=== PATIENT | female | born 1975 | race Caucasian/White ===

== ENCOUNTER → 2018-12-21 11:36 | Outpatient (CLI) | payer SELFPAY | PROVIDERS: Family Provider Family Medicine; PCP Family Medicine; Visit Provider Physician Assistant | DX: R30.0 Dysuria (principal) | CPT/HCPCS: 87077; 87086; 87147; 87186 ==

== ENCOUNTER 2020-10-30 17:58 | Emergency (ER) | payer OTHER, MEDICAID, SELFPAY ==
[2020-10-30] VITALS (13 sets, daily range): BP systolic 148–186; BP diastolic 82–107; PULSE 67–84; RESP 11–25; TEMP 37.1; O2SAT 98–100; BMI 39.5
--- NOTE | 2020-10-30 18:09 | DI.RAD.S_ITS ---
PROCEDURE: XR CHEST 1V INDICATIONS: chest pain TECHNIQUE: One view of the chest was acquired. COMPARISON: None. FINDINGS: Surgical changes and devices: None. Lungs and pleura: Lungs are clear. No pleural effusions or pneumothorax. Mediastinum: Mediastinal contours appear normal. Heart size is mildly prominent. Bones and chest wall: No suspicious bony lesions. Overlying soft tissues appear unremarkable. IMPRESSION: No acute pulmonary process. Dictated by: Bekah Mak M.D. on 10/30/2020 at 18:45 Approved by: Bekah Mak M.D. on 10/30/2020 at 18:45
[2020-10-30 18:40] LABS: Add Manual Diff / Slide Review NO; Basophils Absolute Auto 100 /uL (0-100); Basophils Percent Auto 1.2 % (0-2); Eosinophils Absolute Auto 200 /uL (0-450); Eosinophils Percent Auto 2.1 % (2-4); Hematocrit 40.2 % (36-46); Hemoglobin 13.3 g/dL (12.0-16.0); Lymphocytes Absolute Auto 3200 /uL (1100-4500); Lymphocytes Percent Auto 31.1 % (25-40); Mean Corpuscular HGB Conc 33.1 % (30-36); Mean Corpuscular Hemoglobin 27.3 PG (26-34); Mean Corpuscular Volume 82.3 fL (80-100); Monocytes Absolute Auto 600 /uL (0-900); Monocytes Percent Auto 5.7 % (3-14); Neutrophils Absolute Auto 6100 /uL (1500-7000); Neutrophils Percent Auto 59.9 % (50-75); Platelet Count 333 X10^3/uL (150-400); Red Blood Cell Count 4.89 X10^6/uL (4.0-5.2); Red Cell Distribution Width 15.6 % (11.6-14.8); White Blood Cell Count 10.1 X10^3/uL (4.5-11.0)
[2020-10-30 18:48] LABS: Prothrombin Time 11.7 SECONDS (10.1-12.7)
[2020-10-30 18:51] LABS: PTT Partial Thromboplastin Tim 36 SECONDS (26.4-36.2)
--- NOTE | 2020-10-30 18:52 | ED_ITS ---
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 Earlier in the day her blood pressure had been 130/80 she then was feeling clammy some mild palpitations and blood pressure was rechecked and was found to be 178/100. She states that she just feels weird but does not have any other specific findings. She is not complaining of dyspnea, orthopnea, chest pain, nausea, vomiting, diarrhea, abdominal pain, headaches, acute neurologic changes, lower extremity edema. She does note that about a month ago she had a 2 that fell out while she was brushing her teeth bleeding of hold seems to be healing it was not painful and continues to not be painful. Of note, she did have her 1st COVID shot today. Related Data Home Medications Medication Instructions Recorded Confirmed cranberry fruit concentrate 250 mg 250 mg PO DAILY PRN tab 09/22/19 09/22/19 chewable tablet ibuprofen 200 mg capsule 600 mg PO Q8H PRN cap 09/22/19 09/22/19 Allergies Allergy/AdvReac Type Severity Reaction Status Date / Time No Known Drug Allergies Allergy Verified 10/30/20 18:09 Review of Systems Review of Systems ROS Unobtainable: All systems reviewed & are unremarkable except as noted in HPI and below Patient History Medical History Elevated blood pressure reading Obesity Surgical History History of third molar tooth extraction Status post tubal ligation Status post tubal ligation Family History Brother Age: 43 Hypertension Father Cancer Heart disease Hypertension Stroke Hepatitis C Mother Hepatitis C Grandfather Hypertension Parkinson disease Sister Age: 30 Heart disease Hypertension Social History Smoking Status: Current every day smoker Smoking Status: Current every day smoker tobacco type: cigarettes alcohol intake frequency: 0-2 drinks per day Substance Use Type: marijuana Exam Narrative Exam Narrative: General: Healthy appearing, in no acute distress. Able to give a complete and coherent history. Well-nourished well-developed HEENT: Moist mucous membranes, normal sclera with reactive pupils, Neck: No JVD, supple Respiratory: Lungs are clear to auscultation, no wheezing no rales no rhonchi. Full and symmetrical air movement Cardiac: Regular rate and rhythm no murmurs no bruits Abdomen: Soft, nontender, good bowel tones, no flank pain Skin: Warm and dry, no rashes Neurologic: Grossly neurologically intact with no obvious asymmetries or abnormalities Extremities: No trauma, well perfused Psych: Cooperative, appropriate insight and affect Initial Vital Signs Initial Vital Signs: Vital Signs Temperature 98.7 F 10/30/20 18:04 Pulse Rate 84 10/30/20 18:04 Respiratory Rate 22 10/30/20 18:04 Blood Pressure 176/106 H 10/30/20 18:04 Pulse Oximetry 98 10/30/20 18:04 Course Orders Ordered: ED Orders 10/30/20 18:09 XR chest 1V Stat EKG-12 Lead Stat 10/30/20 18:32 Complete Blood Count AUTO DIFF Stat Comprehensive Metabolic Panel Stat Lipase Stat Partial Thromboplastin Time Stat Prothrombin Time INR Stat Troponin & CK Cardiac Panel Stat Vital Signs Vital signs: Vital Signs - 8 hr 10/30/20 18:04 10/30/20 19:08 10/30/20 19:11 Temperature 98.7 F Pulse Rate 84 76 73 Respiratory Rate 22 23 Blood Pressure 176/106 H 186/98 H 186/98 H Pulse Oximetry 98 98 99 10/30/20 19:30 10/30/20 19:31 10/30/20 20:00 Temperature Pulse Rate 75 70 70 Respiratory Rate 23 15 22 Blood Pressure 179/84 H Pulse Oximetry 98 98 98 10/30/20 20:01 10/30/20 20:22 10/30/20 20:30 Temperature Pulse Rate 68 69 67 Respiratory Rate 19 11 L 20 Blood Pressure 169/85 H Pulse Oximetry 99 100 98 10/30/20 20:31 03/12/21 21:00 Temperature Pulse Rate 68 69 Respiratory Rate 22 23 Blood Pressure 167/91 H Pulse Oximetry 98 99 Medical Decision Making Medical Records Medical records reviewed: Yes I reviewed the patient's medical records. Lab Data Lab results reviewed: Yes I reviewed the patient's lab results. Result diagrams: 10/30/20 18:32 10/30/20 18:32 Labs: Lab Results 10/30/20 10/30/20 10/30/20 Range/Units 18:32 18:32 18:32 WBC 10.1 (4.5-11.0) X10^3/uL RBC 4.89 (4.0-5.2) X10^6/uL Hgb 13.3 (12.0-16.0) g/dL Hct 40.2 (36-46) % MCV 82.3 (80-100) fL MCH 27.3 (26-34) PG MCHC 33.1 (30-36) % RDW 15.6 H (11.6-14.8) % Plt Count 333 (150-400) X10^3/uL Neut % (Auto) 59.9 (50-75) % Lymph % (Auto) 31.1 (25-40) % [place] % (Auto) 5.7 (3-14) % Eos % (Auto) 2.1 (2-4) % Baso % (Auto) 1.2 (0-2) % Neut # (Auto) 6100 (3935-1824) /uL Lymph # (Auto) 3200 (4163-1438) /uL [place] # (Auto) 600 (0-900) /uL Eos # (Auto) 200 (0-450) /uL Baso # (Auto) 100 (0-100) /uL PT 11.7 (10.1-12.7) SECONDS INR 1.0 (0.9-1.3) APTT 36 (26.4-36.2) SECONDS Sodium 137 (137-145) mmol/L Potassium 4.1 (3.4-5.1) mmol/L Chloride 105 (98-107) mmol/L Carbon Dioxide 25 (22-32) mmol/L BUN 12 (7-17) mg/dL Creatinine 0.66 (0.52-1.04) mg/dL Estimated GFR > 60.0 (>60) mL/min BUN/Creatinine Ratio 18.2 (6-22) Glucose 101 H (70-100) mg/dL Calcium 9.1 (8.4-10.2) mg/dL Total Bilirubin 0.1 L (0.2-1.3) mg/dL AST 26 (14-36) IU/L ALT 22 (<35) IU/L Alkaline Phosphatase 88 (38-126) U/L Total Creatine Kinase 83 (30-135) U/L CK-MB (CK-2) TNP CK-MB (CK-2) Rel Index TNP Troponin I < 0.012 (0.01-0.034) ng/mL Total Protein 7.8 (6.3-8.2) g/dL Albumin 4.5 (3.5-5.0) g/dL Globulin 3.3 (1.7-4.1) g/dL Albumin/Globulin Ratio 1.4 (1.0-2.8) Lipase 45 (23-300) U/L Imaging Data Chest x-ray: Radiologist's Impression: FINDINGS: Surgical changes and devices: None. Lungs and pleura: Lungs are clear. No pleural effusions or pneumothorax. Mediastinum: Mediastinal contours appear normal. Heart size is mildly prominent. Bones and chest wall: No suspicious bony lesions. Overlying soft tissues christian ear unremarkable. IMPRESSION: No acute pulmonary process. Dictated by: Bekah Mak M.D. on 10/30/2020 at 18:45 ECG Data Attestation: I personally reviewed and interpreted this ECG as follows: Interpretation: Sinus rhythm at a rate of 77 Normal axis, normal intervals No acute ischemic changes MDM Narrative Medical decision making narrative: 45-year-old woman presents with elevated blood pressures and sense of ?being off?. She did get her First COVID shot earlier today. Blood pressure was significantly elevated and has come down nicely with no interventions in the emergency department. Medical workup is reassuring. At this point I suspect that this significantly elevated blood pressure is due to her COVID shot. I also suspect that she does have hypertension that needs to be further addressed. She has recently started an exercise program. Strongly recommended that she keep track of her blood pressures over the next couple of weeks and schedule an appointment with her primary care physician to review the blood pressures and discuss the need for interventions beyond primary lifestyle changes. Questions are answered and she is safe for home discharge Discharge Plan Departure Patient Disposition: Home Clinical Impression: Elevated blood pressure reading Instructions: DI for High Blood Pressure Activity Restrictions/Additional Instructions: Thank you for coming in today Your blood pressure was significantly elevated and has come down nicely with no significant medical intervention. It may well be that this is your body's reaction to your 1st COVID shot. Regardless, you do need to keep track of your blood pressures. I would recommend taking your blood pressure daily to every other day and schedule an appointment with your primary care physician to review the readings. You may n eed to be on blood pressure medication. In the meantime, continuing your efforts with healthy lifestyle choices and increase walking is going to be very helpful. If you have recurrent symptoms or issues please feel free to return to the ER Prescriptions: No Action Azo Cranberry 250 mg tablet,chewable 250 mg PO DAILY PRNRF: 0 ibuprofen 200 mg capsule 600 mg PO Q8H PRNRF: 0
[2020-10-30 18:53] LABS: Alanine Aminotransferase 22 IU/L (<35); Albumin 4.5 g/dL (3.5-5.0); Albumin Globulin Ratio 1.4 (1.0-2.8); Alkaline Phosphatase 88 U/L (38-126); Aspartate Aminotransferase 26 IU/L (14-36); BUN Creatinine Ratio 18.2 (6-22); Bilirubin Total 0.1 mg/dL (0.2-1.3); Blood Urea Nitrogen 12 mg/dL (7-17); Calcium 9.1 mg/dL (8.4-10.2); Carbon Dioxide 25 mmol/L (22-32); Chloride 105 mmol/L (98-107); Creatine Kinase 83 U/L (30-135); Estimated Glomerular Filt Rate > 60.0 mL/min (>60); Globulin 3.3 g/dL (1.7-4.1); Glucose 101 mg/dL (70-100); HEMOLYSIS < 15 (0-50); Lipase 45 U/L (23-300); Potassium 4.1 mmol/L (3.4-5.1); Sodium 137 mmol/L (137-145); Total Protein 7.8 g/dL (6.3-8.2)
[2020-10-30 19:04] LABS: Troponin I < 0.012 ng/mL (0.01-0.034)
--- NOTE | 2020-10-30 19:16 | PC.NURSE ---
rec'd report from AGUEDA maldonado. pt resting in bed. denies pain. BP still elevated 188/systolic. NAD. asking from update on plan of care.
== END 2020-10-30 21:55 | disposition home or self-care (01) ==
PROVIDERS: Emergency Provider Emergency Medicine; Family Provider Family Medicine
DX: R03.0 Elevated blood-pressure reading, without diagnosis of hypertension (principal); R07.9 Chest pain, unspecified
CPT/HCPCS: 36415; 71045; 80053; 82550; 83690; 84484; 85025; 85610; 85730; 93005; 99283; 99284

== ENCOUNTER 2022-01-28 03:45 | Emergency (ER) | payer OTHER, MEDICAID, SELFPAY ==
[2022-01-28 03:49] VITALS: BP 138/95; PULSE 85; RESP 20; TEMP 36.6; O2SAT 95
--- NOTE | 2022-01-28 04:05 | ED.FEMALEGU ---
HPI - Female Genitourinary General Chief complaint: Urogenital-Female Stated complaint: blood in urine x1 day Time Seen by Provider: 01/28/22 03:53 Mode of arrival: Ambulatory History of Present Illness HPI Narrative: Patient complains of urinary frequency dysuria and urgency. Voids small amount and feels like she has to go again. Ongoing for the past 3 days. Patient has history UTI in the past. Denies . 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 She states at time she does not go to the restroom and withholding urine/voiding. No fever chills. No back pain. Related Data Home Medications Medication Instructions Recorded Confirmed ibuprofen 200 mg capsule 600 mg PO Q8H PRN 09/22/19 12/16/20 Previous Rx's Medication Instructions Recorded cephalexin 500 mg capsule 500 mg PO TID #15 caps 01/28/22 cephalexin 500 mg capsule 500 mg PO TID #15 caps 01/28/22 phenazopyridine 100 mg tablet 100 mg PO TID PRN pain 6 doses #6 01/28/22 (Pyridium) tabs phenazopyridine 100 mg tablet 100 mg PO TID PRN pain 6 doses #6 01/28/22 (Pyridium) tabs Allergies Allergy/AdvReac Type Severity Reaction Status Date / Time No Known Drug Allergies Allergy Verified 12/16/20 16:41 Review of Systems Review of Systems Narrative: GENERAL: Denies chills, fatigue, malaise, fever, sweats. HEENT: Denies sinus pain, ear pain, sore throat RESPIRATORY: Denies dyspnea, cough CARDIOVASCULAR: Denies chest pain, palpitations GASTROINTESTINAL: Denies nausea, vomiting, abdominal pain : Positive for dysuria, frequency, hematuria and urgency MUSCULOSKELETAL: denies muscle or bony pain SKIN: Denies rash, skin lesions NEUROLOGIC: Denies weakness, numbness ROS Unobtainable: All systems reviewed & are unremarkable except as noted in HPI and below Patient History Medical History Elevated blood pressure reading Obesity Surgical History History of third molar tooth extraction Status post tubal ligation Status post tubal ligation Family History Brother Age: 45 Hypertension Father Cancer Heart disease Hypertension Stroke Hepatitis C Mother Hepatitis C Grandfather Hypertension Parkinson disease Sister Age: 32 Heart disease Hypertension tobacco type: cigarettes alcohol intake frequency: 0-2 drinks per day Substance Use Type: marijuana Exam Narrative Exam Narrative: GENERAL: in no distress, not toxic not dyspneic HEAD: Normocephalic. EYES: Pupils equal round No scleral icterus. GASTROINTESTINAL: Abdomen soft, mild suprapubic tenderness no peritoneal signs bowel sounds present EXTREMITIES: No gross deformities. BACK: No flank tenderness. No CVA tenderness NEURO: AOx4. SKIN: Warm and dry PSYCH: Not anxious, is cooperative Initial Vital Signs Initial Vital Signs: Vital Signs Temperature 98 F 01/28/22 03:49 Pulse Rate 85 01/28/22 03:49 Respiratory Rate 20 01/28/22 03:49 Blood Pressure 138/95 H 01/28/22 03:49 Pulse Oximetry 95 01/28/22 03:49 Oxygen Delivery Method 01/28/22 03:49 Course Course Course Narrative: No new issues during course of stay Orders Ordered: ED Orders 01/28/22 03:55 Urinalysis and Microscopic Stat Urine Culture Stat Discontinued Medications Cephalexin HCl (Cephalexin 250 Mg Capsule) 500 mg PO NOW ONE Stop: 01/28/22 04:20 Last Admin: 01/28/22 04:29 Dose: 500 mg Documented By: ARASH Phenazopyridine HCl (Phenazopyridine 100 Mg Tablet) 100 mg PO NOW ONE Stop: 01/28/22 04:20 Last Admin: 01/28/22 04:29 Dose: 100 mg Documented By: ARASH Reevaluation(s) Reevaluation #1: Reviewed results with patient. Medications started here. Prescriptions provided today return precautions reviewed with her. Time: 04:22 Vital Signs Vital signs: Vital Signs - 8 hr 01/28/22 03:49 01/28/22 05:24 Temperature 98 F Pulse Rate 85 80 Respiratory Rate 20 18 Blood Pressure 138/95 H 141/78 H Pulse Oximetry 95 98 Oxygen Delivery Method Room Air Room Air MDM - Female Genitourinary Differential Diagnosis Differential diagnosis: Likely urinary tract infection, cystitis and other (Kidney stone) Lab Data Labs: Lab Results 01/28/22 Range/Units 03:55 Urine Color Brown Urine Appearance Turbid Urine pH 6.5 (4.5-8.0) Ur Specific [place] 1.025 (1.000-1.035) Urine Protein 3+ H (Negative) Urine Glucose (UA) Negative (Negative) g/dL Urine Ketones Trace H (NEGATIVE) Urine Occult Blood 3+ H (Negative) Urine Nitrate Positive H (Negative) Urine Bilirubin Negative (NEGATIVE) Urine Urobilinogen 0.2 (0.2) E.U./dL Ur Leukocyte Esterase 2+ H (NEGATIVE) Urine RBC >100/hpf H (0-5/HPF) Urine WBC 5-10/hpf H (0-5/HPF) Ur Squamous Epith Cells 0-1 /hpf (0-5/HPF) Urine Bacteria Moderate (10-30) H (None) Ur Culture Indicated? Specimen cultured MDM Narrative Medical decision making narrative: Appropriate for discharge home. No blood work or imaging indicated this time. Will treat clinic for UTI. Treated for hemorrhagic cystitis. Patient not toxic. Discharge Plan Departure Patient Disposition: Home Clinical Impression: UTI (urinary tract infection) Instructions: DI for Urinary Tract Infection (UTI) Activity Restrictions/Additional Instructions: See family doctor next week for re-evaluation. Keep well hydrated, drink plenty fluids daily. Call provided primary care referral phone number to establish family doctor. Call [phone]. Return if worse if any questions or concerns. Prescriptions has been sent to your [facility] pharmacy here in [facility]. Prescriptions: New phenazopyridine [Pyridium] 100 mg tablet 100 mg PO TID PRN (Reason: pain) Qty: 6 0RF cephalexin 500 mg capsule 500 mg PO TID Qty: 15 0RF phenazopyridine [Pyridium] 100 mg tablet 100 mg PO TID PRN (Reason: pain) Qty: 6 0RF cephalexin 500 mg capsule 500 mg PO TID Qty: 15 0RF No Action ibuprofen 200 mg capsule 600 mg PO Q8H PRN Referrals: Miscellaneous,Doctor, MD [Primary Care Provider] - Visit Report Forms: Patient Portal/API
[2022-01-28 04:07] LABS: Appearance Urine UA TURBID; Color Urine UA BROWN; Glucose Urine UA NEGATIVE (Negative); Ketones Urine UA TRACE (NEGATIVE); Leukocyte Esterase Urine UA 2+ (NEGATIVE); Nitrite Urine UA POSITIVE (Negative); Occult Blood Urine UA 3+ (Negative); Protein Urine UA 3+ (Negative); Specific Gravity Urine UA 1.025 (1.000-1.035); Urobilinogen Urine UA 0.2 E.U./dL (0.2)
[2022-01-28 04:11] LABS: pH Urine UA 6.5 (4.5-8.0)
[2022-01-28 04:12] LABS: Bilirubin Urine UA Negative (NEGATIVE)
[2022-01-28 04:18] LABS: Bacteria Urine Moderate (10-30); RBC Urine >100/HPF (0-5/HPF); Squamous Epithelial Cell Urine 0-1 /HPF (0-5/HPF)
[2022-01-28 04:20] LABS: Culture Indicated Urine Specimen Cultured; WBC Urine 5-10/HPF (0-5/HPF)
[2022-01-28] MEDS: PHENAZOPYRIDINE 100 MG TABLET PO (04:29)
[2022-01-28] MEDS: cephALEXin 250 MG CAPSULE 500 MG PO (04:29)
[2022-01-28 05:24] VITALS: BP 141/78; PULSE 80; RESP 18; O2SAT 98
== END 2022-01-28 05:25 | disposition home or self-care (01) ==
PROVIDERS: Emergency Provider Emergency Medicine; Family Provider Family Medicine
DX: N39.0 Urinary tract infection, site not specified (principal)
CPT/HCPCS: 81001; 87077; 87086; 87186; 99283

== ENCOUNTER → 2022-02-22 16:00 | Outpatient (CLI) | payer OTHER, MEDICAID, SELFPAY | PROVIDERS: Family Provider Family Medicine; Visit Provider Nurse Practitioner Family | DX: R30.0 Dysuria (principal) | CPT/HCPCS: 81002; 87077; 87086; 87186 ==

== ENCOUNTER → 2022-03-03 18:30 | Outpatient (CLI) | payer BC, OTHER, SELFPAY | PROVIDERS: Family Provider Family Medicine; Visit Provider Physician Assistant | DX: R30.0 Dysuria (principal) | CPT/HCPCS: 81002; 87077; 87086; 87186 ==

== ENCOUNTER 2024-11-11 13:39 | Emergency (ER) | payer OTHER, SELFPAY ==
[2024-11-11] VITALS (25 sets, daily range): BP systolic 174–265; BP diastolic 77–129; PULSE 59–84; RESP 16–26; TEMP 36.4–36.6; O2SAT 96–100; BMI 43.9
--- NOTE | 2024-11-11 13:55 | DI.RAD.S_ITS ---
PROCEDURE: XR CHEST 1V INDICATIONS: chest pain TECHNIQUE: One view of the chest was acquired. COMPARISON: [facility], CR, XR CHEST 1V, 10/30/2020, 18:30. FINDINGS: Surgical changes and devices: None. Lungs and pleura: Lungs are clear. No pleural effusions or pneumothorax. Mediastinum: Mediastinal contours appear normal. Heart size is normal. Bones and chest wall: No suspicious bony lesions. Overlying soft tissues appear unremarkable. IMPRESSION: No acute cardiopulmonary abnormality is seen. Dictated by: Michael Lilly M.D. on 11/11/2024 at 14:41 Approved by: Michael Lilly M.D. on 11/11/2024 at 14:41
--- NOTE | 2024-11-11 14:00 | EKG_ITS ---
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
[2024-11-11 14:25] LABS: Add Manual Diff / Slide Review NO; Basophils Absolute Auto 100 /uL (0-100); Basophils Percent Auto 0.8 % (0-2); Eosinophils Absolute Auto 200 /uL (0-450); Eosinophils Percent Auto 2.4 % (2-4); Hematocrit 40.8 % (36-46); Hemoglobin 13.4 g/dL (12.0-16.0); Lymphocytes Absolute Auto 2600 /uL (1100-4500); Lymphocytes Percent Auto 31.9 % (25-40); Mean Corpuscular HGB Conc 32.9 % (30-36); Mean Corpuscular Hemoglobin 26.3 PG (26-34); Monocytes Absolute Auto 300 /uL (0-900); Monocytes Percent Auto 4.3 % (3-14); Neutrophils Absolute Auto 4900 /uL (1500-7000); Neutrophils Percent Auto 60.6 % (50-75); Platelet Count 332 X10^3/uL (150-400); Red Blood Cell Count 5.11 X10^6/uL (4.0-5.2); Red Cell Distribution Width 16.3 % (11.6-14.8)
[2024-11-11 14:39] LABS: Prothrombin Time 10.9 SECONDS (9.4-12.5)
[2024-11-11 14:42] LABS: PTT Partial Thromboplastin Tim 35 SECONDS (25.1-36.5)
[2024-11-11 14:43] LABS: Alanine Aminotransferase 27 IU/L (<35); Albumin 4.7 g/dL (3.5-5.0); Albumin Globulin Ratio 1.3 (1.0-2.8); Alkaline Phosphatase 89 U/L (38-126); Aspartate Aminotransferase 31 IU/L (14-36); BUN Creatinine Ratio 24.6 (6-22); Bilirubin Total 0.4 mg/dL (0.2-1.3); Blood Urea Nitrogen 15 mg/dL (7-17); Calcium 9.2 mg/dL (8.4-10.2); Carbon Dioxide 20 mmol/L (22-32); Chloride 106 mmol/L (98-107); Creatine Kinase 69 U/L (30-135); Estimated Glomerular Filt Rate > 60 mL/min (>60); Globulin 3.5 g/dL (1.7-4.1); Glucose 95 mg/dL (70-100); HEMOLYSIS < 15 (0-50); Lipase 44 U/L (23-300); Potassium 4.1 mmol/L (3.4-5.1); Sodium 138 mmol/L (137-145); Total Protein 8.2 g/dL (6.3-8.2)
[2024-11-11 14:54] LABS: NT-proBNP (BNP-Adult 18+) 129 pg/mL (<125); Troponin I < 0.012 ng/mL (0.01-0.034)
[2024-11-11 16:43] LABS: Bacteria Urine Few (2-10); Culture Indicated Urine Cult Not Indicated; RBC Urine 0-1/HPF (0-5/HPF); Squamous Epithelial Cell Urine 1-5 /HPF (0-5/HPF); Urine Volume 10mL (spun); WBC Urine 0-1/HPF (0-5/HPF)
--- NOTE | 2024-11-11 18:18 | ED_ITS ---
HPI - General Adult General Chief complaint: Hypertension Stated complaint: High blood pressure, Bilateral arm numbness Time Seen by Provider: 11/11/24 14:13 Source: patient, RN notes reviewed and old records reviewed Mode of arrival: Ambulatory Limitations: no limitations History of Present Illness HPI narrative: 49-year-old female presents with concern for hypertension was seen at the dentist on Monday had elevated blood pressure has been checking it since Monday. Patient states she was had known elevated blood pressure for many years has not ever been treated is not on any daily prescription medications. She was had a tooth has been bothering her she went to the dentist on Monday blood pressure is about 180s over 1 teens they told her to follow up they would not pull her tooth until it was improved. She has been taking penicillin as well as Tylenol ibuprofen for the dental pain and infection. She has not had any fevers or chills. She has a little bit of chest discomfort and shortness of breath here and there but not persistently. No cold cough or congestion symptoms. No nausea or vomiting. No abdominal back or flank pain. No new GI or urinary symptoms. She was sometimes have some mild swelling of her feet and ankles. She was not on any prescription medications normally. She was had a prior tubal. No known drug allergies. Quit tobacco on Monday. No alcohol, uses marijuana no other recreational drugs. Has a primary care appointment with Dr. Hyman December 31 but it was wait listed. She has been checking her blood pressures over the last several days she has been running pretty consistently in the 170 systolic. Related Data Home Medications Medication Instructions Recorded Confirmed ibuprofen 200 mg capsule 600 mg PO Q8H PRN 09/22/19 03/03/22 Previous Rx's Medication Instructions Recorded cephalexin 500 mg capsule 500 mg PO TID #15 caps 01/28/22 cephalexin 500 mg capsule 500 mg PO TID #15 caps 01/28/22 phenazopyridine 100 mg tablet 100 mg PO TID PRN pain 6 doses #6 01/28/22 (Pyridium) tabs phenazopyridine 100 mg tablet 100 mg PO TID PRN pain 6 doses #6 01/28/22 (Pyridium) tabs phenazopyridine 200 mg tablet 200 mg PO TID 6 doses #6 tabs 02/22/22 (Pyridium) lisinopril 5 mg tablet 5 mg PO DAILY #30 tabs 11/11/24 Allergies Allergy/AdvReac Type Severity Reaction Status Date / Time kiwi Allergy Swelling Verified 11/11/24 13:48 of Lip/Tongue/Throat Review of Systems Review of Systems ROS Unobtainable: All systems reviewed & are unremarkable except as noted in HPI and below Patient History Medical History Elevated blood pressure reading Obesity Surgical History Status post tubal ligation Status post tubal ligation History of third molar tooth extraction Family History Brother Age: 47 Hypertension Father Cancer Heart disease Hypertension Stroke Hepatitis C Mother Hepatitis C Grandfather Hypertension Parkinson disease Sister Age: 34 Heart disease Hypertension Social History Smoking Status: Former smoker Smoking Status: Former smoker tobacco type: cigarettes alcohol intake frequency: 0-2 drinks per day Exam Narrative Exam Narrative: GENERAL: Alert and oriented x three, female in no acute distress HEENT: Head normocephalic, atraumatic, EOMI, pupils reactive, face symmetric, moist mucous membranes NECK: Supple, full range of motion CARDIOVASCULAR: Regular rate and rhythm without murmurs, rubs or gallops. RESPIRATORY: Breath sounds equal bilaterally, no wheezes rales or rhonchi. ABDOMEN: Soft, nontender. Normoactive bowel sounds all 4 quadrants. No guarding or rebound, rigidity, no mass : No CVA tenderness EXTREMITIES: Normal range of motion, no clubbing or edema. Neurovascularly intact NEUROLOGICAL: Cranial nerves II through XII grossly intact. Moving all extremities SKIN: Warm, dry, no petechiae, no rashes or lesions. Initial Vital Signs Initial Vital Signs: Vital Signs Temperature 97.5 F L 11/11/24 13:48 Pulse Rate 68 11/11/24 13:48 Respiratory Rate 17 11/11/24 13:48 Blood Pressure 265/129 H 11/11/24 13:48 Pulse Oximetry 98 11/11/24 13:48 Oxygen Delivery Method Room Air 11/11/24 13:48 Course Orders Ordered: Discontinued Medications Lisinopril (Lisinopril 10 Mg Tablet) 10 mg PO NOW ONE Stop: 11/11/24 18:59 Last Admin: 11/11/24 19:06 Dose: 10 mg Documented By: DORI Vital Signs Vital signs: Vital Signs - 8 hr 11/11/24 18:00 11/11/24 18:01 11/11/24 18:01 Temperature Pulse Rate 64 65 Respiratory Rate 18 18 Blood Pressure 210/94 H Pulse Oximetry 98 98 Oxygen Delivery Method 11/11/24 18:30 11/11/24 19:00 11/11/24 19:06 Temperature Pulse Rate 61 59 L 78 Respiratory Rate 22 26 H Blood Pressure 231/107 H Pulse Oximetry 97 97 Oxygen Delivery Method 11/11/24 19:08 11/11/24 19:08 11/11/24 19:34 Temperature 97.9 F Pulse Rate 68 64 Respiratory Rate 17 18 Blood Pressure 231/107 H 178/84 H Pulse Oximetry 98 98 Oxygen Delivery Method Room Air Medical Decision Making Lab Data 11/11/24 14:15 11/11/24 14:15 Labs: Lab Results 11/11/24 11/11/24 Range/Units 14:15 16:30 WBC 8.0 (4.5-11.0) X10^3/uL RBC 5.11 (4.0-5.2) X10^6/uL Hgb 13.4 (12.0-16.0) g/dL Hct 40.8 (36-46) % MCV 80.0 (80-100) fL MCH 26.3 (26-34) PG MCHC 32.9 (30-36) % RDW 16.3 H (11.6-14.8) % Plt Count 332 (150-400) X10^3/uL Neut % (Auto) 60.6 (50-75) % Lymph % (Auto) 31.9 (25-40) % [place] % (Auto) 4.3 (3-14) % Eos % (Auto) 2.4 (2-4) % Baso % (Auto) 0.8 (0-2) % Neut # (Auto) 4900 (6800-5015) /uL Lymph # (Auto) 2600 (7893-2332) /uL [place] # (Auto) 300 (0-900) /uL Eos # (Auto) 200 (0-450) /uL Baso # (Auto) 100 (0-100) /uL PT 10.9 (9.4-12.5) SECONDS INR 1.0 (0.9-1.3) APTT 35 (25.1-36.5) SECONDS Sodium 138 (137-145) mmol/L Potassium 4.1 (3.4-5.1) mmol/L Chloride 106 (98-107) mmol/L Carbon Dioxide 20 L (22-32) mmol/L BUN 15 (7-17) mg/dL Creatinine 0.61 (0.52-1.04) mg/dL Estimated GFR > 60 (>60) mL/min BUN/Creatinine Ratio 24.6 H (6-22) Glucose 95 (70-100) mg/dL Calcium 9.2 (8.4-10.2) mg/dL Magnesium 2.0 (1.6-2.3) mg/dL Total Bilirubin 0.4 (0.2-1.3) mg/dL AST 31 (14-36) IU/L ALT 27 (<35) IU/L Alkaline Phosphatase 89 (38-126) U/L Total Creatine Kinase 69 (30-135) U/L Troponin I < 0.012 (0.01-0.034) ng/mL NT-Pro-B Natriuret Pep 129 H (<125) pg/mL Total Protein 8.2 (6.3-8.2) g/dL Albumin 4.7 (3.5-5.0) g/dL Globulin 3.5 (1.7-4.1) g/dL Albumin/Globulin Ratio 1.3 (1.0-2.8) Lipase 44 (23-300) U/L Urine RBC 0-1/hpf D (0-5/HPF) Urine WBC 0-1/hpf (0-5/HPF) Ur Squamous Epith Cells 1-5 /hpf (0-5/HPF) Urine Bacteria Few (2-10) H (None) Ur Culture Indicated? Cult not indicated Vol Urine Centrifuged 10ml (spun) Urine Dip Bedside Urine Glucose Negative Bedside Urine Bilirubin - Negative Bedside Urine Ketone - Negative Urine Specific [place] 1.010 Bedside Urine Occult Blood + Bedside Urine pH 6.0 Bedside Urine Protein - Negative Bedside Urine Urobilinogen - Negative Bedside Urine Nitrite - Negative Bedside Urine Leukocytes - Negative Esterase Point of care testing: Urine Dip Bedside Urine Glucose Negative Bedside Urine Bilirubin - Negative Bedside Urine Ketone - Negative Urine Specific [place] 1.010 Bedside Urine Occult Blood + Bedside Urine pH 6.0 Bedside Urine Protein - Negative Bedside Urine Urobilinogen - Negative Bedside Urine Nitrite - Negative Bedside Urine Leukocytes - Negative Esterase ECG Data Attestation: I personally reviewed and interpreted this ECG as follows: Interpretation: EKG shows sinus rhythm premature atrial complexes rate of 65 [place] 142 QRS 80 QTC of 409, no acute ST elevation depression noted MDM Narrative Medical decision making narrative: Labs show white count 8 hemoglobin of 13 platelets of 332. Coags are negative CO2 is 20 electrolytes are otherwise appropriate creatinine 0.61 glucose is 95 troponins less than 0.012 with a BNP of 129. Point of care urine shows blood, urine micro shows 1 red cell 1 white cell 1-5 squamous few bacteria. Chest x-ray shows no acute process. EKG shows sinus rhythm premature atrial complexes rate of 65 [place] 142 QRS 80 QTC of 409, no acute ST elevation depression noted. 49-year-old female presents with complaint of hypertension. Patient does have prior visits from which show patient has been fairly persistently elevated 150s to 170s on past visits as well. Discharge Plan Departure Patient Disposition: Home Clinical Impression: Hypertension Instructions: DI for High Blood Pressure Activity Restrictions/Additional Instructions: Follow up with primary care. Take blood pressure medication once daily. Prescription was sent to [facility] Please return for new or worsening chest pain or shortness of breath, lightheadedness or passing out, vomiting, severe headaches, new swelling of your extremities or other new or concerning changes. Prescriptions: New lisinopril 5 mg tablet 5 mg PO DAILY Qty: 30 0RF No Action ibuprofen 200 mg capsule 600 mg PO Q8H PRN phenazopyridine [Pyridium] 200 mg tablet 200 mg PO TID 0 Days Qty: 6 0RF phenazopyridine [Pyridium] 100 mg tablet 100 mg PO TID PRN (Reason: pain) Qty: 6 0RF cephalexin 500 mg capsule 500 mg PO TID Qty: 15 0RF phenazopyridine [Pyridium] 100 mg tablet 100 mg PO TID PRN (Reason: pain) Qty: 6 0RF cephalexin 500 mg capsule 500 mg PO TID Qty: 15 0RF Stand Alone Forms: Patient Portal/API/Survey
[2024-11-11] MEDS: lisinopriL 10 MG TABLET PO (19:06)
== END 2024-11-11 19:35 | disposition home or self-care (01) ==
PROVIDERS: Emergency Medicine; Emergency Provider Emergency Medicine; Family Provider Family Medicine
DX: I10 Essential (primary) hypertension (principal); R07.9 Chest pain, unspecified; R06.02 Shortness of breath; I49.1 Atrial premature depolarization; Z87.891 Personal history of nicotine dependence
CPT/HCPCS: 36415; 71045; 80053; 81003; 81015; 82550; 83690; 83735; 83880; 84484; 85025; 85610; 85730; 93005; 99284

== ENCOUNTER → 2025-01-28 15:45 | Outpatient (CLI) | payer OTHER, SELFPAY ==
--- NOTE | 2025-01-28 15:46 | DI.US.S_ITS ---
PROCEDURE: US PELVIC COMPLETE INDICATIONS: RT OVARY PAIN TECHNIQUE: Real-time scanning was performed of the pelvic organs, with image documentation. Additional endovaginal scanning was necessary due to incomplete visualization of the adnexal and endometrial structures by transabdominal scanning. COMPARISON: None. FINDINGS: Uterus: 8.2 x 4.3 x 4.5 cm. Endometrium measures 4 mm. Anteverted positioning. Multiple nabothian cysts are present, some which are complex, possibly hemorrhagic products. Ovaries: Not discretely visualized. Technically limited exam due to body habitus and bowel gas. Other: Elevated postvoid residual in the urinary bladder incidentally noted, measuring 83 cc. IMPRESSION: Ovaries were not discretely identified. Technically limited exam due to body habitus and bowel gas. Unremarkable sonographic appearance of the uterus. Incidentally noted elevated postvoid residual. Cervical nabothian cysts are present, some which appear complex possibly hemorrhagic products. Dictated by: Keo Myers M.D. on 01/29/2025 at 6:42 Approved by: Keo Myers M.D. on 01/29/2025 at 6:44
== END ==
LOC: US 15:45
PROVIDERS: Family Provider Family Medicine; PCP Student in an Organized Health Care Education/Training Program; Referring Provider Student in an Organized Health Care Education/Training Program; Visit Provider Student in an Organized Health Care Education/Training Program
DX: N94.89 Other specified conditions associated with female genital organs and menstrual cycle (principal); N88.8 Other specified noninflammatory disorders of cervix uteri
CPT/HCPCS: 76830; 76856

== ENCOUNTER → 2025-02-03 15:14 | Outpatient (CLI) | payer OTHER, SELFPAY ==
--- NOTE | 2025-02-03 15:16 | DI.MG.S_ITS ---
MM screening mammo BI: 02/03/2025. BI-RADS: 1 CLINICAL: 49-year old female for bilateral screening mammogram. Tyrer-Cuzick lifetime risk of 13.9%. Current reported family history of breast cancer: mother. PRIOR EXAMS: None. This is a baseline mammogram. MAMMOGRAPHY TECHNIQUE: 2D and 3D (tomosynthesis) digital mammographic views obtained, with additional images as needed for full coverage. Current study was also evaluated with a Computer Aided Detection (CAD) system. DENSITY B. There are scattered areas of fibroglandular density. MAMMOGRAPHY FINDINGS Bilateral: No suspicious mass, asymmetry, microcalcification, or other abnormality seen. IMPRESSION: * No evidence of malignancy. RECOMMENDATIONS Bilateral * Annual screening mammography. OVERALL ASSESSMENT CATEGORY BI-RADS-1: Negative. The [employer] recommends annual screening mammography beginning at age 40 for women with average risk of breast cancer. ELECTRONICALLY SIGNED: Jamison Hinojosa M.D. on 02/04/2025 at 08:29:10 AM PT Interpreting Station ID: [id number]
== END ==
LOC: MAMMO 15:14
PROVIDERS: Family Provider Family Medicine; PCP Student in an Organized Health Care Education/Training Program; Referring Provider Student in an Organized Health Care Education/Training Program; Visit Provider Student in an Organized Health Care Education/Training Program
DX: Z12.31 Encounter for screening mammogram for malignant neoplasm of breast (principal); Z80.3 Family history of malignant neoplasm of breast
CPT/HCPCS: 77063; 77067

== ENCOUNTER → 2025-02-19 15:45 | Outpatient (CLI) | payer OTHER, SELFPAY ==
--- NOTE | 2025-02-20 12:01 | DIET.OUTPTC ---
Dietary Outpatient Consult Consult Date:02/19/25 Assessment:? 49 y F referred to dietitian for obesity and HTN. Pt looking into DASH style of eating and started to workout in last 6 months. Looking for help to continue establish healthy eating patterns. So far has gone from 290lb to 270s. Reports few days of no appetite and not much PO intakes followed by binge-like eating for 1 full day, insatiable hunger. Got book on DASH eating. Taking BP medication regularly. Family hx of DM- grandmother GI symptoms: Denies D/C/N/V, reports BM daily type 3-4 Diet Recall: 5:30am: [place] bar or regular lowfat yogurt, sometime fruit 5pm: sheet headley dinner/tacos with chk or fish, potatoes, broccoli/zucchini 1-2x/wk chocolate square When having a day of insatiable hunger will eat variety of snacks throughout day, some healthy, some not. Followed by feeling overly full and feelings of regret. With start of BP med, started taking Mg supplement, unsure of amount. Fluids: water 2-3 L daily Ht:?5 ft 7 in? Wt:??272 lb UBW: 288 lb per EMR on 11/11/24 (-5.5% weight loss in 3 months) Activity: Pilates 3-4x/wk for 30 mins, started walking to stores/errands instead of driving Pertinent Labs: Has labs ordered, will get them done Nutrition Diagnosis:? Disordered eating patterns r/t inconsistent eating patterns and food and nutrition related knowledge deficit aeb 2 or so days of very limited PO intakes d/t lack of hunger followed by a day of overeating past point of fullness Interventions:? Discussed and provided appropriate resources on the following: -Nutrition therapy for HTN: DASH diet and components, reasoning behind DASH, important nutrients, label reading for sodium and sources balanced meals Provided packet with DASH diet description, DASH meal switches and plans, FDA handout on sodium label reading, and activity FITT handout -Consistent eating daily to avoid binge-like eating -Brainstormed meal ideas Goals: -Consistent day time eating to establish appetite again, starting with most tolerated options when having no appetite B-granola bar and nuts/yogurt L-add in protein shake or string cheese w/ nuts/fruit/bar (has 30 min lunch break 11am) D-same as usual EER:? 2000 mg or less sodium daily, 25-28 g fiber daily Monitoring/Evaluations:? F/u in 2 months, delayed d/t pt schedule Electronically Signed by: April Chao Clinical Dietitian [address] [id number]
== END ==
PROVIDERS: Family Provider Family Medicine; PCP Student in an Organized Health Care Education/Training Program; Referring Provider Student in an Organized Health Care Education/Training Program
DX: E66.9 Obesity, unspecified (principal); I10 Essential (primary) hypertension; Z71.3 Dietary counseling and surveillance
CPT/HCPCS: 97802

== ENCOUNTER → 2025-02-22 10:15 | Outpatient (CLI) | payer OTHER, SELFPAY ==
[2025-02-22 11:09] LABS: Add Manual Diff / Slide Review NO; Hematocrit 39.4 % (36-46); Hemoglobin 12.9 g/dL (12.0-16.0); Lymphocytes Absolute Auto 2500 /uL (1100-4500); Mean Corpuscular HGB Conc 32.8 % (30-36); Mean Corpuscular Hemoglobin 26.7 PG (26-34); Mean Corpuscular Volume 81.2 fL (80-100); Platelet Count 298 X10^3/uL (150-400)
[2025-02-22 11:23] LABS: Alanine Aminotransferase 19 IU/L (<35); Albumin 3.9 g/dL (3.5-5.0); Albumin Globulin Ratio 1.3 (1.0-2.8); Alkaline Phosphatase 74 U/L (38-126); Blood Urea Nitrogen 11 mg/dL (7-17); Calcium 9.0 mg/dL (8.4-10.2); Carbon Dioxide 22 mmol/L (22-32); Chloride 107 mmol/L (98-107); Cholesterol 178 mg/dL (140-199); Estimated Glomerular Filt Rate > 60 mL/min (>60); Globulin 2.9 g/dL (1.7-4.1); Glucose 98 mg/dL (70-99); HDL Cholesterol 42 mg/dL (40-60); HEMOLYSIS < 15 (0-50); Potassium 4.6 mmol/L (3.4-5.1); Sodium 137 mmol/L (137-145); Total Protein 6.8 g/dL (6.3-8.2); Triglycerides 141 mg/dL (35-150)
[2025-02-22 11:53] LABS: Thyroid Stimulating Hormone 0.965 uIU/mL (0.47-4.68)
[2025-02-22 12:02] LABS: Microalbumi Creatinin Ratio Ur 120.0 ug/mg CR (<30)
== END ==
PROVIDERS: Family Provider Family Medicine; PCP Student in an Organized Health Care Education/Training Program; Referring Provider Student in an Organized Health Care Education/Training Program; Visit Provider Student in an Organized Health Care Education/Training Program
DX: I10 Essential (primary) hypertension (principal)
CPT/HCPCS: 36415; 80053; 80061; 82043; 82570; 84443; 85025